=== PATIENT | male | born 1995 | race Caucasian/White ===

== ENCOUNTER 2017-03-05 12:41 | Emergency (ER) | payer SELFPAY ==
--- NOTE | 2017-03-05 13:27 | ER Document Report ---
HPI - HPI Onset: Yesterday Quality of pain: Throbbing Pain Level: 5 Context: 21-year-old male injured his left wrist while playing with his niece yesterday she hyper flexed at. Increased pain at the left ulnar styloid when he supinates. - ROS ROS below otherwise negative: Yes Systems Reviewed and Negative: Yes All other systems reviewed and negative - DERM Skin Color: Normal Past Medical History - General Information source: Patient - Social History Smoking Status: Never Smoker Frequency of alcohol use: None Drug Abuse: None Lives with: Family Family History: Reviewed & Not Pertinent Patient has suicidal ideation: No Patient has homicidal ideation: No Renal/ Medical History: Denies: Hx Peritoneal Dialysis Musculoskeltal Medical History: Reports Hx Musculoskeletal Trauma - hx fractured left wrist Skin Medical History: Reports None Vertical Provider Document - CONSTITUTIONAL Agree With Documented VS: Yes Exam Limitations: No Limitations - INFECTION CONTROL TRAVEL OUTSIDE OF THE [place] IN LAST 30 DAYS: No - HEENT HEENT: Normocephalic - NECK Neck: Supple - RESPIRATORY Respiratory: Breath Sounds Normal, No Respiratory Distress O2 Sat by Pulse Oximetry: 98 - CARDIOVASCULAR Cardiovascular: Regular Rate, Regular Rhythm - MUSCULOSKELETAL/EXTREMETIES Musculoskeletal/Extremeties: MAEW, FROM, Tender - Left ulnar styloid, Edema - NEURO Level of Consciousness: Awake, Alert, Appropriate - DERM Integumentary: Warm, Dry, No Rash Course - Vital Signs Vital signs: Temp Pulse Resp BP Pulse Ox 98.5 F 53 L 20 128/97 H 98 03/05/17 12:56 03/05/17 12:56 03/05/17 12:56 03/05/17 12:56 03/05/17 12:56 Procedures - Immobilization Left Wrist Time completed: 14:10 Pre-Proc Neuro Vasc Exam: Normal Immobilizer type: Sugar tong Performed by: PCT Post-Proc Neuro Vasc Exam: Normal Alignment checked and good: Yes Discharge - Discharge Clinical Impression: left ulnar styloid fracture Condition: Good Disposition: HOME, SELF-CARE Instructions: Temporary Splint ([facility]), Splint Precautions ([facility]), Temporary Sling ([facility]), Oral Narcotic Medication ([facility]), Anti-Inflammatory Medication ([facility]) Additional Instructions: elevate call the [facility] doctor on wednesday (may be closed on wednesday for easter-but you can try on wednesday) for appt next week to er any concerns this weekend Please complete the patient satisfaction survey if you get one, and return it.. If you do not receive a survey, then you can go to the [facility] website, [email or web address] and place your comments about your very good care. Thank you very much. It was a pleasure being your medical provider today. Prescriptions: Hydrocodone Bit/Acetaminophen [Hydrocodon-Acetaminophen 5-325] 1 - 2 each PO Q4HP PRN #15 tablet PRN Reason: Ibuprofen 800 mg PO Q8HP PRN #30 tablet PRN Reason: Referrals: TIM CORTES MD [ACTIVE STAFF] - 03/08/17
[2017-03-05] MEDS ORDERED: IBUPROFEN 800 MG TABLET PO ONE (13:31)
[2017-03-05] MEDS ORDERED: HYDROCODONE/ACETAMINOPHEN 5-325 MG TABLET PO ONE (14:10)
[2017-03-05 14:28] VITALS: BP 125/69
== END 2017-03-05 14:28 | disposition home or self-care (01) ==
LOC: ER 12:41
PROC: 2W3DX1Z Immobilization of Left Lower Arm using Splint (ICD-10-PCS; principal; 2017-03-05)
DX: S52.615A Nondisplaced fracture of left ulna styloid process, initial encounter for closed fracture (principal); X58.XXXA Exposure to other specified factors, initial encounter
CPT/HCPCS: 99283